=== PATIENT | female | born 1965 | race Caucasian/White ===

== ENCOUNTER 2016-06-27 20:58 | Emergency (ER) | payer BC ==
[~2016-06-27] VITALS: Ht 165.1 cm; Wt 98.9 kg
[2016-06-27 21:24] VITALS: BP 153/102
[2016-06-27] MEDS ORDERED: Ketorolac 30mg Inj IV ONE (21:30)
[2016-06-27 22:17] LABS: BASOPHILS % (AUTO) 0.6 % (0.0-2.0); EOSINOPHILS % (AUTO) 1.2 % (0.0-3.0); MEAN CORPUSCULAR HEMOGLOBIN 29.3 PG (27.0-31.0); MEAN CORPUSCULAR HGB CONC 33.7 G/DL (32.0-36.0); MEAN CORPUSCULAR VOLUME 87 FL (80-99); MEAN PLATELET VOLUME 6.1 FL (6.5-10.1); MONOCYTES % (AUTO) 6.6 % (1.0-10.0); NEUTROPHILS % (AUTO) 68.6 % (45.0-75.0); PLATELET COUNT 269 K/UL (150-450); RED BLOOD COUNT 4.31 M/UL (4.20-5.40); RED CELL DISTRIBUTION WIDTH 11.7 % (11.6-14.8); WHITE BLOOD COUNT 10.8 K/UL (4.8-10.8)
[2016-06-27 22:33] LABS: APPEARANCE,URINE CLEAR; KETONES,URINE 3+ (NEGATIVE); LEUKOCYTE ESTERASE ,URINE 3+ (NEGATIVE); NITRITE,URINE NEGATIVE (NEGATIVE); PH,URINE 6.5 (4.5-8.0); PROTEIN,URINE 1+ (NEGATIVE); UROBILINOGEN,URINE NORMAL MG/DL (0.0-1.0)
[2016-06-27 22:36] LABS: ALANINE AMINOTRANSFERASE 29 U/L (3-33); ALBUMIN/GLOBULIN RATIO 1.4 (1.0-2.7); ANION GAP 18 (5-15); ASPARTATE AMINO TRANSFERASE 17 U/L (5-40); CALCIUM 9.5 mg/dL (8.6-10.2); CARBON DIOXIDE 24 mEQ/L (20-30); CHLORIDE 97 mEQ/L (98-107); CREATININE 0.7 mg/dL (0.5-0.9); GLOMERULAR FILTRATION RATE > 60 mL/min (>60); HEMOLYSIS 4; LIPASE 22 U/L (< 60); POTASSIUM 3.6 mEQ/L (3.4-4.9); SODIUM 139 mEQ/L (135-145); TOTAL PROTEIN 7.8 g/dL (6.6-8.7)
[2016-06-27 22:44] LABS: BACTERIA,URINE FEW /HPF; SQUAMOUS EPITHELIAL CELL,UR FEW /LPF (NONE/OCC); WBC,URINE 15-20 /HPF (0 - 2)
[2016-06-27 22:51] LABS: REFLEX LACTIC ACID YES OR NO YES
[2016-06-27] MEDS ORDERED: cefTRIAXone 1 GM in NS 55 ML IVPB ONE (23:00)
--- NOTE | 2016-06-27 23:06 | Emergency Room Report ---
History of Present Illness General Chief Complaint: Abdominal Pain Source: Patient Present Illness HPI Had colonoscopy yesterday. Stinging with urine and also abdominal pain after the procedure. The pain is in the left lower quadrant. It is fairly constant but worse with moving about and states pain is 7/10. She was sent in by her doctor to get a CT and also laboratory work. Her MD is concerned about perforation. She took Tramadol before coming in and this helped the pain minimally. No NVD. H/O Crohn's. She is on Katia at this time also. She is moving her bowels. No blood. No fevers, chills, dyspnea, cough. No rashes, headache. with bowel prep and kids return from [place] - had to take [employer]. Allergies: Coded Allergies: No Known Allergies (Unverified , 06/27/16) Patient History Past Medical History: see triage record, other - Crohn's Past Surgical History: other - bowel resection Social History: Denies: alcohol use, smoking Social History Narrative with kids Now: No Reviewed Nursing Documentation: PMH: Agreed, PSxH: Agreed Review of Systems All Other Systems: negative except mentioned in HPI Physical Exam Vital Signs Date Time Temp Pulse Resp B/P Pulse Ox O2 Delivery O2 Flow Rate FiO2 06/27/16 21:10 99.5 117 19 153/102 97 Room Air Sp02 EP Interpretation: reviewed, normal General Appearance: well appearing, no apparent distress, GCS 15 Head: normocephalic Eyes: bilateral eye PERRL, bilateral eye normal inspection ENT: moist mucus membranes Neck: supple Respiratory: lungs clear, normal breath sounds Cardiovascular #1: regular rate, rhythm Cardiovascular #2: 2+ radial (R) Gastrointestinal: normal bowel sounds, non-distended, no rebound, tenderness - LLQ Musculoskeletal: back normal, gait/station normal, normal range of motion Neurologic: alert, oriented x3, grossly normal Psychiatric: mood/affect normal Skin: normal inspection, warm/dry Medical Decision Making Diagnostic Impression: Primary Impression: Abdominal pain Qualified Codes: R10.32 - Left lower quadrant pain Additional Impressions: UTI (urinary tract infection) Qualified Codes: N30.00 - Acute cystitis without hematuria History of Crohn's disease ER Course Patient presents with abdominal pain post colonoscopy. Ddx; perforation, inflammation, exacerbation Crohn's, UTI, diverticulitis, colitis amongst others. Emergent evaluation with labs, UA, CT. Treatment with IV hydration and analgesia (limited as got ride here). Improved after toradol. Awaiting CT results. CT with suggestion of regionalized colitis. No perforation. Discussed with Dr. Pastrana.. He requested we start Flagyl. Also, increased analgesic. Patient stable for outpatient observation and treatment. Laboratory Tests Test 06/27/16 22:01 06/27/16 22:09 White Blood Count 10.8 K/UL (4.8-10.8) Red Blood Count 4.31 M/UL (4.20-5.40) Hemoglobin 12.6 G/DL (12.0-16.0) Hematocrit 37.5 % (37.0-47.0) Mean Corpuscular Volume 87 FL (80-99) Mean Corpuscular Hemoglobin 29.3 PG (27.0-31.0) Mean Corpuscular Hemoglobin Concent 33.7 G/DL (32.0-36.0) Red Cell Distribution Width 11.7 % (11.6-14.8) Platelet Count 269 K/UL (150-450) Mean Platelet Volume 6.1 FL (6.5-10.1) L Neutrophils (%) (Auto) 68.6 % (45.0-75.0) Lymphocytes (%) (Auto) 23.0 % (20.0-45.0) Monocytes (%) (Auto) 6.6 % (1.0-10.0) Eosinophils (%) (Auto) 1.2 % (0.0-3.0) Basophils (%) (Auto) 0.6 % (0.0-2.0) Prothrombin Time 10.0 SEC (9.30-11.50) Prothrombin Time INR 1.0 (0.9-1.1) PTT 28 SEC (23-33) Sodium Level 139 mEQ/L (135-145) Potassium Level 3.6 mEQ/L (3.4-4.9) Chloride Level 97 mEQ/L (98-107) L Carbon Dioxide Level 24 mEQ/L (20-30) Anion Gap 18 (5-15) H Blood Urea Nitrogen 7 mg/dL (7-23) Creatinine 0.7 mg/dL (0.5-0.9) Estimate Glomerular Filtration Rate > 60 mL/min (>60) Glucose Level 188 mg/dL (74-106) H Lactic Acid Level 2.00 mmol/L (0.66-2.22) Calcium Level 9.5 mg/dL (8.6-10.2) Total Bilirubin 0.4 mg/dL (0.0-1.2) Aspartate Amino Transferase (AST) 17 U/L (5-40) Alanine Aminotransferase (ALT) 29 U/L (3-33) Alkaline Phosphatase 50 U/L (35-104) Total Protein 7.8 g/dL (6.6-8.7) Albumin 4.6 g/dL (3.5-5.2) Globulin 3.2 g/dL Albumin/Globulin Ratio 1.4 (1.0-2.7) Lipase 22 U/L (< 60) Urine Color Yellow Urine Appearance Clear Urine pH 6.5 (4.5-8.0) Urine Specific [place] 1.015 (1.005-1.035) Urine Protein 1+ (NEGATIVE) H Urine Glucose (UA) 1+ (NEGATIVE) H Urine Ketones 3+ (NEGATIVE) H Urine Occult Blood Negative (NEGATIVE) Urine Nitrite Negative (NEGATIVE) Urine Bilirubin Negative (NEGATIVE) Urine Urobilinogen Normal MG/DL (0.0-1.0) Urine Leukocyte Esterase 3+ (NEGATIVE) H Urine RBC 2-4 /HPF (0 - 2) H Urine WBC 15-20 /HPF (0 - 2) H Urine Squamous Epithelial Cells Few /LPF (NONE/OCC) Urine Bacteria Few /HPF (NONE) CT/MRI/US Diagnostic Results CT/MRI/US Diagnostic Results : Imaging Test Ordered: CT abd pelvis Impression Focal thickening of descending colon/prosimal sigmoid colon which may represent a focal colitis. Fatty liver. Previous resection and anastomosis. No free air. Impression: Focal area of wall thickening of the distal descending colon with some surrounding inflammation. No definite diverticula. Suspect this represents focal colitis, otherwise nonspecific as regards etiology. Another possibility is diverticulitis due to an occult diverticulum Fatty liver Evidence of prior ileocolic anastomosis Slight bilateral renal collecting system fullness, without evident downstream obstruction lesion, significance doubted Minimal inferior lingular atelectasis. Minimal degenerative spondylosis Last Vital Signs Date Time Temp Pulse Resp B/P Pulse Ox O2 Delivery O2 Flow Rate FiO2 06/28/16 00:50 99.5 86 19 130/96 100 Room Air Status: improved Disposition: HOME, SELF-CARE Condition: Improved Scripts Oxycodone/Acetaminophen 5-325* (PERCOCET 5-325 MG TABLET*) 1 Each Tablet 1 TAB ORAL Q4H Y for For Pain, #10 TAB Prov: Derrick Ramos M.D. 06/28/16 Metronidazole* (FLAGYL*) 500 Mg Tablet 500 MG ORAL THREE TIMES A DAY, #21 TAB 0 Refills Prov: Derrick Ramos M.D. 06/28/16 Nitrofurantoin Monohyd/M-Cryst* (MACROBID 100 MG*) 100 Mg Capsule 100 MG ORAL EVERY 12 HOURS, #14 CAP Prov: Derrick Ramos M.D. 06/28/16 Derrick Ramos M.D. Jun 27, 2016 23:06
[2016-06-28] MEDS ORDERED: NITROFURANTOIN100 M2 ORAL (00:03)
[2016-06-28] MEDS ORDERED: metroNIDAZOLE 500mg tab ORAL ONE (00:15)
[2016-06-28] MEDS ORDERED: PERCOCET 5-3251 EACH ORAL (00:17)
[2016-06-28] MEDS ORDERED: METRONIDAZOLE500 MG ORAL (00:17)
[2016-06-28 00:50] VITALS: BP 130/96
--- NOTE | 2016-06-29 12:56 | Diagnostic Imaging Report ---
Clinical Indication: Abdominal pain Technique: Patient given oral contrast. IV administration nonionic contrast. Venous phase spiral acquisition obtained through the abdomen and pelvis. Multiplanar reconstructions were generated. Total dose length product 1004 mGycm. CTDIvol(s) 18 mGy Comparison: None Findings: There is evidence of prior right surgical ileocolic anastomosis. The appendix is not visualized, suspect surgically absent. No definite evidence of diverticulosis. There is, however, focal wall thickening of the distal descending colon with slight infiltration of the surrounding fat. No free or loculated intraperitoneal air or fluid is demonstrated. No small bowel distention or small bowel wall thickening. The distal esophagus, stomach, duodenum are unremarkable. The liver is diffusely hypoattenuating, consistent with fatty change. There is a very subtle area of focal low-attenuation at the junction of segments 4A and IVb which measures 2.4 cm in diameter. The gallbladder is nondistended. No biliary ductal location is evident. The spleen is borderline enlarged, measuring 13 cm long axis dimension. The pancreas, adrenals are unremarkable. The kidneys demonstrate slight fullness the collecting systems bilaterally, but no evidence of ureteral obstructing lesion or calculus. The uterus and ovaries are unremarkable. No pelvic mass or adenopathy. No retroperitoneal or mesenteric mass or adenopathy. Lung bases demonstrate some atelectasis in the inferior lingula as well as some dependent posterior atelectasis. The bones demonstrate mild degenerative spondylosis. Impression: Focal area of wall thickening of the distal descending colon with some surrounding inflammation. No definite diverticula. Suspect this represents focal colitis, otherwise nonspecific as regards etiology. Another possibility is diverticulitis due to an occult diverticulum Fatty liver Evidence of prior ileocolic anastomosis Slight bilateral renal collecting system fullness, without evident downstream obstruction lesion, significance doubted Minimal inferior lingular atelectasis. Minimal degenerative spondylosis The above findings are in agreement with the preliminary interpretation provided overnight by [facility] teleradiology service Borderline splenomegaly 2.4 cm area of focal low-attenuation lesion within segment 4A and IVb. Possibly an area of focal heavier fat deposition, but mass lesion is to be ruled out. Recommend liver protocol MRI for further evaluation The above findings were not described on the [facility] pulmonary report. This was phoned to Dr. Comer in the emergency room at the time of interpretation The CT scanner at [facility] is accredited by the [employer] and the scans are performed using protocols designed to limit radiation exposure to as low as reasonably achievable to attain images of sufficient resolution adequate for diagnostic evaluation.
== END 2016-06-28 00:50 | disposition home or self-care (01) ==
LOC: EMR 21:25
DX: R10.32 Left lower quadrant pain (principal); N39.0 Urinary tract infection, site not specified; Z87.19 Personal history of other diseases of the digestive system; K76.0 Fatty (change of) liver, not elsewhere classified; Z98.0 Intestinal bypass and anastomosis status
CPT/HCPCS: 36415; 74177; 80053; 81003; 83605; 83690; 85025; 85610; 85730; 87086; 87181; 96360; 96361; 96374; 96375; 99284; J0696; J1885; J2405; Q9967